=== PATIENT | male | born 1995 | race Caucasian/White ===

== ENCOUNTER 2018-02-21 13:04 | Emergency (ER) | payer SELFPAY ==
[~2018-02-21] VITALS: Ht 175.3 cm; Wt 120.0 kg
[2018-02-21] MEDS ORDERED: IBUPROFEN 600MG TABLET PO ONE (15:30)
[2018-02-21] MEDS ORDERED: BACITRACIN ZINC OINT UDPKT TOP ONE (15:30)
[2018-02-21 15:45] VITALS: BP 135/66
[2018-02-21] MEDS ORDERED: AMOXICILLIN/POTASSIUM CLAVULANATE 875/125MG TAB PO ONE (16:15)
== END 2018-02-21 16:56 | disposition home or self-care (01) ==
LOC: ER 13:04
DX: S21.051A Open bite of right breast, initial encounter (principal); S27.898A Other injury of other specified intrathoracic organs, initial encounter; S51.851A Open bite of right forearm, initial encounter; S00.81XA Abrasion of other part of head, initial encounter; S40.812A Abrasion of left upper arm, initial encounter; S40.811A Abrasion of right upper arm, initial encounter; Y04.1XXA Assault by human bite, initial encounter; Y93.89 Activity, other specified; R03.0 Elevated blood-pressure reading, without diagnosis of hypertension; Y92.512 Supermarket, store or market as the place of occurrence of the external cause
CPT/HCPCS: 73090; 99284

== ENCOUNTER 2018-09-12 10:36 | Emergency (ER) | payer OTHER ==
[~2018-09-12] VITALS: Ht 177.8 cm; Wt 161.0 kg
[2018-09-12] MEDS ORDERED: KETOROLAC 60MG/2ML VIAL IM ONE (11:15)
[2018-09-12 11:19] VITALS: BP 151/82
[2018-09-12 13:00] LABS: *BENZODIAZEPINES SCREEN URINE NEGATIVE (NEGATIVE); CANNABINOID URINE SCREEN NEGATIVE (NEGATIVE); METHADONE URINE SCREEN NEGATIVE (NEGATIVE); OPIATES URINE SCREEN NEGATIVE (NEGATIVE); PHENCYCLIDINE URINE SCREEN NEGATIVE (NEGATIVE)
[2018-09-12 13:02] LABS: *BARBITURATES SCREEN URINE NEGATIVE (NEGATIVE)
[2018-09-12 13:07] LABS: *COCAINE SCREEN URINE NEGATIVE (NEGATIVE)
[2018-09-12 13:08] LABS: *AMPHETAMINES SCREEN URINE NEGATIVE (NEGATIVE)
== END 2018-09-12 13:24 | disposition home or self-care (01) ==
LOC: ER 10:45
DX: S80.11XA Contusion of right lower leg, initial encounter (principal); I10 Essential (primary) hypertension; E66.01 Morbid (severe) obesity due to excess calories; Z68.43 Body mass index [BMI] 50.0-59.9, adult; Z86.011 Personal history of benign neoplasm of the brain; Y04.0XXA Assault by unarmed brawl or fight, initial encounter; Y93.89 Activity, other specified; Y92.89 Other specified places as the place of occurrence of the external cause
CPT/HCPCS: 73590; 80305; 96372; 99284; J1885; Z7610